=== PATIENT | male | born 1970 | race Two or more races ===

== ENCOUNTER 2024-12-22 12:55 | Outpatient (RCR) | payer MEDICAID, SELFPAY | END 2025-01-11 23:59 | disposition home or self-care (01) | LOC: SCTC 12:55 | PROVIDERS: PCP Physician Assistant; Referring Provider Physician Assistant; Visit Provider Internal Medicine Hematology & Oncology | DX: D69.6 Thrombocytopenia, unspecified (principal); R16.1 Splenomegaly, not elsewhere classified; E11.9 Type 2 diabetes mellitus without complications; K74.60 Unspecified cirrhosis of liver; E53.8 Deficiency of other specified B group vitamins; Z79.84 Long term (current) use of oral hypoglycemic drugs | CPT/HCPCS: 99213; G0463 ==

== ENCOUNTER 2025-03-05 13:15 | Outpatient (RCR) | payer MEDICAID, SELFPAY ==
--- NOTE | 2025-03-08 22:34 | CTCFLWUP_ITS ---
Patient: MILVIA BAXTER : 1970 Page 2 of 4 FOLLOW UP NOTE DATE OF SERVICE: 03/05/2025 NAME: MILVIA BAXTER ACCOUNT: [id number] : 1970 AGE: 54 INTERVAL HISTORY: Summary --patient is here to follow-up on pancytopenia. Patient have pancytopenia likely from liver cirrhosis and splenomegaly. Patient also have chronic iron deficiency and B12 deficiency. Did not drink any alcohol for last 3 years. Denies any bleeding or bruising. Patient follows with hepatology as well as GI. Patient follows with hematology for iron deficiency and thrombocytopenia. Thrombocytopenia likely secondary to liver cirrhosis and splenomegaly History of iron deficiency and B12 deficiency Leukopenia HISTORY OF PRESENT ILLNESS: 54-year-old male with chronic thrombocytopenia, liver disease, and type 2 diabetes presented with fatigue, consultation for low platelets. Previously on oral iron supplementation (pills then infusions) at [facility] in [place], [place]. The patient is followed by liver specialists, with a colonoscopy/endoscopy re commended, date pending. History includes reduced history of alcohol abuse. 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 He denies any bleeding concerns, denies weight loss, denies fever. OTHER MEDICAL HISTORY/CONDITIONS: Thrombicytopenia / Decreased white blood cell counts Diabetes Cirrhosis liver/spenomegaly HTN Left?inguinal?hernia?repair??-?as?child FAMILY HISTORY: Patient?denies?family?cancer?history. SOCIAL HISTORY: Occupational?History:?Unemployed Education?Level:?Completed 11th grade Marital?Status:? Tobacco Use:?As teenager - Stopped age 14 ETOH Use:?Quit 2009; 18-24pk/day beer- 43 yrs Drug?Note:?Quit age 22 - marijuana; cocaine; meth/PCP for 10yrs Social?History?Note:?Lives?with? MEDICATIONS: 1. carvedilol - 6.25 mg 1 tab Twice a Day 2. cetirizine - 10 mg 1 tab Daily 3. folic acid - 1 mg 1 tab Daily 4. Jardiance - 10 mg 1 tab Daily 5. omeprazole - 20 mg 1 Daily Medications Last Reconciled by Donna Sanchez MD on 03/05/2025 ALLERGIES: Penicillins; codeine sulfate REVIEW OF SYSTEMS: A complete 14-point review of systems was performed and is negative except as noted in interval history. PHYSICAL EXAMINATION: VITAL SIGNS: Temperature?96.8, B/P?113/65, Oxygen?Saturation?97% Weight?198?lbs PAIN: 0 - No pain GENERAL APPEARANCE: Appears well, in no apparent distress, appropriately interactive. HEENT: Normocephalic, no temporal wasting, normal conjunctiva, no scleral icterus, normal hearing, lips without lesions, neck normal range of motion. CARDIOVASCULAR: Not assessed. PULMONARY: Normal respiratory effort, no respiratory distress or use of accessory muscles, speaking in full sentences, no tachypnea. EXTREMITIES: No pedal edema or cyanosis. SKIN: Normal skin appearance. NEUROLOGIC: Alert and oriented x4. PSHYCHIATRIC: Appropriate affect, mood normal, behavior normal, intact thought and speech. LABORATORY DATA: I have personally reviewed and interpreted each of the patient?s relevant lab tests, abnormal findings are below: Date ASSESSMENT/PLAN: Patient with history of low platelets, liver issues, and fatigue presenting for evaluation and management of chronic thrombocytopenia and associated symptoms. Chronic Thrombocytopenia Assessment: Patient reports longstanding low platelet count. Previous on iron supplementation both oral and IV at [facility] in [place], last follow up with hematology was about 4 years ago. No recent blood transfusions required. Differential diagnoses include liver disease-related thrombocytopenia, nutritio nal deficiencies (iron, vitamin B12), or other hematologic disorders. Further investigation is warranted . Denies weight loss, bruising, bleeding. Labs from 06/2024 show platelets are 55,000, hemoglobin 13.8, WBC 2.6. -Flow cytometry was negative -Kidney function is good Elevated bilirubin and low cell counts including leukopenia and thrombocytopenia but no anemia patient has elevated MCV likely from liver disease JAK2 mutation negative/STEFFANIE are MPL E 12-15 negative Hepatitis C negative hepatitis B negative hepatitis C negative Folate 12.9 normal iron studies shows low total iron binding capacity and iron saturation B12 normal at 809 haptoglobin less than 10 LDH 141 HIV nonreactive alpha- fetoprotein 2.4 normal ferritin 96 Liver Disease Assessment: Patient reports being followed by liver specialists in [place] and [place]. History of daily alcohol use. No known history of viral hepatitis. Plan: - Order liver function tests - Request records from liver specialists in [place] and [place] - Support planned colonoscopy and endoscopy by [place] specialist - [employer] Systems Maintainer on complete alcohol cessation - Follow up in one month to review results and specialist recommendations Advised patient to follow-up at [place] or [facility] and referral be placed to tertiary level center Will do scan to evaluate liver for any liver masses and spleen No intervention from hematology oncology point of view Patient's ANC is above 1.7 Continue to monitor Encouraged follow-up at tertiary center for possible liver transplant Type 2 Diabetes Mellitus Assessment: Managed by PCP Plan: - Continue f/u with PCP - Encourage maintenance of stable weight through diet and exercise - Follow up in one month to review results and adjust management as needed ORDERS: Order # Description [id number] Comprehensive Metabolic Panel - 12 + CBC with Auto Diff + AFP + [id number] MD Follow Up 3 Months [id number] CT Scan + Abdomen [id number] MD Follow Up 2 Months RETURN TO CLINIC: I reviewed the diagnosis, prognosis, and recommended treatment/procedure options with the patient (and/or their legal sales training representative), including the potential benefits, risks, side effects and alternative therapies. We also discussed the option of no treatment and the possibility of clinical trial participation, if applicable. All questions were addressed, and they demonstrated understanding. They provided informed consent to proceed with the proposed plan of care. BILLING AND COMPLIANCE: I reviewed external records from providers outside my specialty as summarized above. I spent a total of 50 minutes on this patient?s care on the day of their visit excluding time spent related to any billed procedures. This time includes time spent with the patient as well as time spent documenting in the medical record, reviewing patients records and tests, obtaining history, placing orders, communicating with other healthcare professionals, counseling the patient, family or caregiver, and/or care coordination for the diagnoses above. Electronically Signed by: Zhao Cummings MD T: 10:32 PM CC: PCP: Demetrio Hassan Referring: Demetrio Hassan This document was completed utilizing speech recognition software. Grammatical errors, random word insertions, pronoun errors, and incomplete sentences are an occasional consequence of this system due to software limitations, ambient noise, and hardware issues. Any formal questions or concerns about the content, text or information contained within the body of this dictation should be directly addressed to the provider for clarification.
== END 2025-03-13 23:59 | disposition home or self-care (01) ==
LOC: SCTC 13:15
PROVIDERS: PCP Physician Assistant; Referring Provider Physician Assistant; Visit Provider Internal Medicine Hematology & Oncology
DX: D69.6 Thrombocytopenia, unspecified (principal); D72.819 Decreased white blood cell count, unspecified; R16.1 Splenomegaly, not elsewhere classified; K74.60 Unspecified cirrhosis of liver; E53.8 Deficiency of other specified B group vitamins; E11.9 Type 2 diabetes mellitus without complications; E61.1 Iron deficiency
CPT/HCPCS: 99212; G0463

== ENCOUNTER → 2025-04-21 | Outpatient (CLI) | payer MEDICAID, SELFPAY ==
--- NOTE | 2025-04-21 15:00 | XR_ITS ---
Examination: CT abdomen, without intravenous contrast. CT abdomen, with intravenous contrast. Sagittal and coronal 2-D reconstructions. Time of exam: April 21, 2025, 1648 hours INDICATIONS: Intermittent upper abdominal pain 1 year, diagnosis splenomegaly CTDI: vol (mGy) 21.9 DLP: (mGycm) 735% Technique: Multiple 3.0 mm axial noncontrast images of the abdomen have been obtained. Multiple 3.0 mm axial images post administration 60 cc [id number]-[id number] intravenous contrast have been obtained. Sagittal and coronal 3-D reconstructions have been obtained. Low dose protocols were performed. One or more of the following dose reduction techniques were used; automated exposure control, adjustment of the mA and/or KV according to patient size, use of iterative reconstruction technique. Findings: Cirrhosis, liver nodular in contour, no focal liver lesions Marked splenomegaly Esophageal varices Gallbladder wall is thickened Mild ascites Perigastric varices Portosystemic collateral vessels medial to the spleen No pancreatic mass Aorta is not enlarged No bowel obstruction Normal appendix IMPRESSION: Cirrhosis Marked splenomegaly Esophageal and perigastric varices Mild ascites Portal hypertension
== END | disposition home or self-care (01) ==
PROVIDERS: PCP Physician Assistant; Referring Provider Internal Medicine Hematology & Oncology; Visit Provider Internal Medicine Hematology & Oncology
DX: R16.1 Splenomegaly, not elsewhere classified (principal); I83.90 Asymptomatic varicose veins of unspecified lower extremity; K70.31 Alcoholic cirrhosis of liver with ascites; K76.6 Portal hypertension
CPT/HCPCS: 74170; A4649; Q9967